=== PATIENT | male | born 1965 | race Caucasian/White ===

== ENCOUNTER 2016-12-22 13:32 | Emergency (ER) | payer BC ==
[~2016-12-22] VITALS: Ht 175.3 cm; Wt 77.1 kg
[2016-12-22 13:35] VITALS: BP 130/88
== END 2016-12-22 14:39 | disposition home or self-care (01) ==
LOC: ER 13:36
DX: S90.111A Contusion of right great toe without damage to nail, initial encounter (principal); W22.8XXA Striking against or struck by other objects, initial encounter; Y93.55 Activity, bike riding; Y92.89 Other specified places as the place of occurrence of the external cause; Y99.8 Other external cause status
CPT/HCPCS: 73660

== ENCOUNTER 2017-02-04 11:16 | Emergency (ER) | payer BC ==
[~2017-02-04] VITALS: Ht 175.3 cm; Wt 77.1 kg
[2017-02-04 11:20] VITALS: BP 123/81
== END 2017-02-04 14:21 | disposition home or self-care (01) ==
LOC: ER 11:16
DX: S96.911A Strain of unspecified muscle and tendon at ankle and foot level, right foot, initial encounter (principal); M72.2 Plantar fascial fibromatosis; X58.XXXA Exposure to other specified factors, initial encounter; Y93.89 Activity, other specified; Y99.8 Other external cause status; Y92.89 Other specified places as the place of occurrence of the external cause
CPT/HCPCS: 73700

== ENCOUNTER → 2018-01-11 | Outpatient (CLI) | payer BC ==
[2018-01-11 14:47] LABS: Basophils # (auto) 0 uL; Basophils % (auto) 0.6 % (0.0-2.0); Eosinophils # (auto) 0.1 uL; Eosinophils % (auto) 1.5 % (0.0-7.0); Hematocrit 44.4 % (41.0-53.0); Hemoglobin 14.9 g/dL (13.5-17.5); Lymphocytes # (auto) 2.4 uL; Lymphocytes % (auto) 31.5 % (10.0-50.0); Mean Corpuscular Hgb Conc. 33.6 g/dL (32.0-36.0); Mean Corpuscular Volume 92.4 fL (80.0-100.0); Monocytes # (auto) 0.4 uL; Monocytes % (auto) 5.3 % (0.0-12.0); Neutrophils # (auto) 4.7 uL; Neutrophils % (auto) 61.1 % (37.0-80.0); Platelet Count (auto) 370 10^3/uL (140-450); Red Blood Cells 4.81 10^6/uL (4.5-5.90); White Blood Cell 7.7 10^3/uL (4.4-10.8)
[2018-01-11 14:54] LABS: Albumin 4.2 g/dL (3.4-5.0); Potassium 4.4 mmol/L (3.5-5.1)
[2018-01-11 15:00] LABS: BUN/Creatinine Ratio 12.9; Calcium 8.3 mg/dL (8.5-10.1)
[2018-01-11 15:03] LABS: Bilirubin, Total 1.2 mg/dL (0.2-1.0); Total Protein 7.8 g/dL (6.4-8.2)
== END | disposition home or self-care (01) ==
LOC: LAB 13:43
DX: Z85.820 Personal history of malignant melanoma of skin (principal)
CPT/HCPCS: 36415; 80053; 82465; 84478; 85025

== ENCOUNTER 2018-10-03 11:33 | Emergency (ER) | payer BC ==
[~2018-10-03] VITALS: Ht 175.3 cm; Wt 74.8 kg
[2018-10-03] MEDS ORDERED: SODIUM CHLORIDE 0.9% 500 ML IVB ONE (11:38)
[2018-10-03] MEDS ORDERED: IOHEXOL 300 MG/ML 100ML BOTTLE IJ ONE (12:01)
[2018-10-03 12:07] LABS: Basophils # (auto) 0.1 uL; Basophils % (auto) 0.8 % (0.0-2.0); Eosinophils # (auto) 0.2 uL; Eosinophils % (auto) 2.1 % (0.0-7.0); Hematocrit 43.9 % (41.0-53.0); Hemoglobin 14.6 g/dL (13.5-17.5); Lymphocytes # (auto) 2.2 uL; Lymphocytes % (auto) 30.6 % (10.0-50.0); Mean Corpuscular Hemoglobin 30.5 pg (28.0-32.0); Mean Corpuscular Hgb Conc. 33.3 g/dL (32.0-36.0); Mean Corpuscular Volume 91.6 fL (80.0-100.0); Monocytes # (auto) 0.4 uL; Monocytes % (auto) 5.8 % (0.0-12.0); Neutrophils # (auto) 4.4 uL; Neutrophils % (auto) 60.7 % (37.0-80.0); Platelet Count (auto) 371 10^3/uL (140-450); Red Cell Distribution Width 13.4 % (11.8-14.3); White Blood Cell 7.3 10^3/uL (4.4-10.8)
[2018-10-03 12:18] LABS: Albumin 4.1 g/dL (3.4-5.0); BUN/Creatinine Ratio 14.3; Calcium 8.9 mg/dL (8.5-10.1); Magnesium 2.4 mg/dL (1.6-2.6); Potassium 4.1 mmol/L (3.5-5.1)
[2018-10-03 12:20] LABS: Bilirubin, Total 0.6 mg/dL (0.2-1.0); Total Protein 8.1 g/dL (6.4-8.2)
[2018-10-03 13:18] LABS: Urine Bacteria NONE SEEN /hpf (None Seen); Urine Blood Negative /uL (Negative); Urine Mucus FEW (None Seen); Urine Specific Gravity 1.023 (1.001-1.035); Urine WBC 1 /hpf (0 - 3)
[2018-10-03 13:53] VITALS: BP 114/76
== END 2018-10-03 13:54 | disposition home or self-care (01) ==
LOC: ER 11:33
DX: S39.011A Strain of muscle, fascia and tendon of abdomen, initial encounter (principal); N40.0 Benign prostatic hyperplasia without lower urinary tract symptoms; X58.XXXA Exposure to other specified factors, initial encounter; Y93.55 Activity, bike riding; Y92.89 Other specified places as the place of occurrence of the external cause; Y99.8 Other external cause status
CPT/HCPCS: 36415; 74177; 80053; 81001; 83690; 83735; 84154; 85025; 94761; 99284; J7040; Q9967

== ENCOUNTER → 2019-12-24 | Day surgery (SDC) | payer BC ==
[2019-12-18 14:32] LABS: Basophils # (auto) 0.1 10 ^3/uL (0-0.2); Basophils % (auto) 0.9 % (0.0-2.0); Eosinophils # (auto) 0.1 10 ^3/uL (0-0.8); Eosinophils % (auto) 1.5 % (0.0-7.0); Hematocrit 43.5 % (41.0-53.0); Hemoglobin 14.5 g/dL (13.5-17.5); Lymphocytes # (auto) 2.2 10 ^3/uL (0.4-5.4); Lymphocytes % (auto) 24.6 % (10.0-50.0); Mean Corpuscular Hemoglobin 30.5 pg (28.0-32.0); Mean Corpuscular Hgb Conc. 33.4 g/dL (32.0-36.0); Mean Corpuscular Volume 91.5 fL (80.0-100.0); Monocytes # (auto) 0.7 10 ^3/uL (0-1.3); Monocytes % (auto) 7.5 % (0.0-12.0); Neutrophils # (auto) 5.9 10 ^3/uL (1.6-8.6); Neutrophils % (auto) 65.5 % (37.0-80.0); Nucleated Red Blood Cells % 0.1 %; Platelet Count (auto) 379 10^3/uL (140-450); Red Blood Cells 4.76 10^6/uL (4.5-5.90); Red Cell Distribution Width 13.4 % (11.8-14.3); Urine Bacteria NONE SEEN /hpf (None Seen); Urine Blood Negative /uL (Negative); Urine Mucus FEW (None Seen); Urine Specific Gravity 1.028 (1.001-1.035); Urine WBC 1 /hpf (0 - 3); White Blood Cell 9.1 10^3/uL (4.4-10.8)
[2019-12-18 14:48] LABS: Potassium 4.2 mmol/L (3.5-5.1)
[2019-12-18 14:51] LABS: Albumin 4.2 g/dL (3.4-5.0); BUN/Creatinine Ratio 13.8; Calcium 9.2 mg/dL (8.5-10.1)
[2019-12-18 14:55] LABS: INR 1.12 (0.9-1.15); Partial Thromboplastin Time 29.6 sec (23.0-31.2)
[2019-12-18 14:57] LABS: Bilirubin, Total 0.8 mg/dL (0.2-1.0); Total Protein 7.8 g/dL (6.4-8.2)
[~2019-12-24] VITALS: Ht 175.3 cm; Wt 77.1 kg
[~2019-12-24] MED LIST: DexAMETHasone SOD PHOS 10MG/1ML VIAL INJ ONE; LIDOCAINE W/ EPINEPHRINE 1% 20ML VIAL ONE; MEPERIDINE HCL (25 MG/ML) 1ML VIAL ONE; MIDAZOLAM HCL 1MG/1ML-2 ML VIAL ONE; ONDANSETRON HCL 4 MG/2 ML VIAL ONE; PROPOFOL 10 MG/ML 20 ML IV ONE; ceFAZolin 1GM/50ML 50 ML IV ONE; fentaNYL CITRATE 100 MCG/2 ML VL ONE
[2019-12-24 09:25] VITALS: BP 125/83
== END | disposition home or self-care (01) ==
LOC: SUR 06:29
PROVIDERS: ATTEND Surgery
DX: R22.2 Localized swelling, mass and lump, trunk (principal); L72.3 Sebaceous cyst; D16.9 Benign neoplasm of bone and articular cartilage, unspecified; L91.8 Other hypertrophic disorders of the skin; Z20.828 Contact with and (suspected) exposure to other viral communicable diseases
CPT/HCPCS: 11401; 11402; 11403; 36415; 80053; 81001; 85025; 85610; 85730; 88305; J0690; J1100; J2175; J2250; J2405; J2704; J3010; U0003

== ENCOUNTER 2020-09-24 17:02 | Outpatient (CLI) | payer BC ==
[2020-09-25 08:51] LABS: Basophils # (auto) 0 10 ^3/uL (0-0.2); Basophils % (auto) 0.8 % (0.0-2.0); Eosinophils # (auto) 0.2 10 ^3/uL (0-0.8); Eosinophils % (auto) 4.5 % (0.0-7.0); Hematocrit 41.7 % (41.0-53.0); Hemoglobin 14.3 g/dL (13.5-17.5); Lymphocytes # (auto) 2.1 10 ^3/uL (0.4-5.4); Lymphocytes % (auto) 38.2 % (10.0-50.0); Mean Corpuscular Hgb Conc. 34.2 g/dL (32.0-36.0); Mean Corpuscular Volume 90.6 fL (80.0-100.0); Monocytes # (auto) 0.4 10 ^3/uL (0-1.3); Monocytes % (auto) 7.9 % (0.0-12.0); Neutrophils # (auto) 2.7 10 ^3/uL (1.6-8.6); Neutrophils % (auto) 48.6 % (37.0-80.0); Platelet Count (auto) 364 10^3/uL (140-450); Red Blood Cells 4.61 10^6/uL (4.5-5.90); Red Cell Distribution Width 13.2 % (11.8-14.3); White Blood Cell 5.5 10^3/uL (4.4-10.8)
[2020-09-25 08:56] LABS: Urine Bacteria NONE SEEN /hpf (None Seen); Urine Blood Negative /uL (Negative); Urine Mucus FEW (None Seen); Urine Specific Gravity 1.022 (1.001-1.035); Urine WBC <1 /hpf (0 - 3)
[2020-09-25 09:33] LABS: Potassium 4.7 mmol/L (3.5-5.1)
[2020-09-25 09:41] LABS: Albumin 3.6 g/dL (3.4-5.0); BUN/Creatinine Ratio 17.3; Bilirubin, Total 0.8 mg/dL (0.2-1.0); Calcium 8.5 mg/dL (8.5-10.1); Total Protein 7.3 g/dL (6.4-8.2)
== END 2020-09-25 08:05 | disposition home or self-care (01) ==
LOC: LAB 17:02
PROVIDERS: ATTEND Internal Medicine
DX: Z00.00 Encounter for general adult medical examination without abnormal findings (principal); I10 Essential (primary) hypertension
CPT/HCPCS: 36415; 80053; 80061; 81001; 82274; 82306; 83036; 84443; 85025; 85049

== ENCOUNTER → 2023-12-31 | Day surgery (SDC) | payer BC ==
[2023-12-26 08:58] LABS: Urine Bacteria None Seen /hpf (None Seen)
[2023-12-26 09:07] LABS: Basophils # (auto) 0.1 10 ^3/uL (0-0.2); Basophils % (auto) 0.8 % (0.0-2.0); Eosinophils # (auto) 0.1 10 ^3/uL (0-0.8); Eosinophils % (auto) 1.3 % (0.0-7.0); Hematocrit 45.5 % (41.0-53.0); Hemoglobin 15.6 g/dL (13.5-17.5); Lymphocytes # (auto) 2.3 10 ^3/uL (0.4-5.4); Mean Corpuscular Hemoglobin 31.4 pg (28.0-32.0); Mean Corpuscular Hgb Conc. 34.2 g/dL (32.0-36.0); Mean Corpuscular Volume 91.9 fL (80.0-100.0); Monocytes # (auto) 0.5 10 ^3/uL (0-1.3); Monocytes % (auto) 7.5 % (0.0-12.0); Neutrophils # (auto) 3.9 10 ^3/uL (1.6-8.6); Neutrophils % (auto) 56.4 % (37.0-80.0); Platelet Count (auto) 357 10^3/uL (140-450); Red Blood Cells 4.95 10^6/uL (4.5-5.90); Red Cell Distribution Width 13.2 % (11.8-14.3); White Blood Cell 6.8 10^3/uL (4.4-10.8)
[2023-12-26 09:22] LABS: INR 1.14 (0.9-1.15)
[2023-12-26 09:23] LABS: Alanine Aminotransferase 16 U/L (7-40); Albumin 4.9 g/dL (3.2-4.8); Alkaline Phosphatase 59 U/L (46-116); Anion Gap 8 (5-15); Aspartate Aminotransferase 13 U/L (13-40); BUN/Creatinine Ratio 14.3 (10.0-20.0); Bilirubin, Total 1.3 mg/dL (0.2-1.0); Blood Urea Nitrogen 16 mg/dL (9-23); Calcium 9.8 mg/dL (8.7-10.4); Carbon Dioxide 26 mmol/L (20-30); Chloride 106 mmol/L (98-107); Glucose 107 mg/dL (74-106); Potassium 4.3 mmol/L (3.5-5.1); Sodium 140 mmol/L (136-145); Total Protein 7.9 g/dL (5.7-8.2)
[2023-12-26 09:58] LABS: Urine Blood Negative /uL (Negative); Urine Clarity Clear (Clear); Urine Color Yellow (Yellow); Urine Mucus FEW (None Seen); Urine Protein, UAD TRACE (Negative); Urine Specific Gravity 1.031 (1.001-1.035); Urine Urobilinogen Normal (Negative); Urine WBC 1 /hpf (0 - 3); Urine pH 5.5 (5.0-9.0)
[~2023-12-31] VITALS: Ht 175.3 cm; Wt 81.6 kg
[~2023-12-31] MED LIST changes: +KETAMINE 50mg/ML 1ml syringe ONE; +LIDOCAINE 1% INJ PF 5ML AMP ONE; +LIDOCAINE HCL 100 MG/5ML (2%) SYRG INJ IV ONE; -LIDOCAINE W/ EPINEPHRINE 1% 20ML VIAL ONE; -MEPERIDINE HCL (25 MG/ML) 1ML VIAL ONE; +MEPERIDINE HCL (50 MG/ML) 1 ML VIAL ONE; -MIDAZOLAM HCL 1MG/1ML-2 ML VIAL ONE; +MIDAZOLAM HCL 2MG/2ML 2ml VIAL (1mg/ml) ONE; +MORPHINE SULFATE 4 MG/ML SYR/VIAL IV PRN; +SODIUM CHLORIDE LOCK 0 ML ONE; -ceFAZolin 1GM/50ML 50 ML IV ONE; +ceFAZolin 2 GM/D5W100ml 100 ML IV ONE
[2023-12-31 08:16] VITALS: RESP 13; TEMP 97.8; O2SAT 97
[2023-12-31 08:55] VITALS: BP 116/75; PULSE 53; RESP 14; O2SAT 95
== END | disposition home or self-care (01) ==
LOC: SUR 06:19 → EEVIPCON 07:00
PROVIDERS: ATTEND Urology
DX: N40.1 Benign prostatic hyperplasia with lower urinary tract symptoms (principal); R31.29 Other microscopic hematuria; R33.9 Retention of urine, unspecified; Z98.890 Other specified postprocedural states
CPT/HCPCS: 36415; 52000; 76872; 80053; 81001; 85025; 85610; 85730; 87086; C1769; J1100; J2250; J2405; J3010; J7030; J2704

== ENCOUNTER → 2024-01-22 | Outpatient (CLI) | payer BC ==
[2024-01-22 11:47] LABS: Basophils # (auto) 0.1 10 ^3/uL (0-0.2); Basophils % (auto) 0.7 % (0.0-2.0); Eosinophils # (auto) 0.2 10 ^3/uL (0-0.8); Eosinophils % (auto) 2.2 % (0.0-7.0); Hematocrit 43.6 % (41.0-53.0); Hemoglobin 14.9 g/dL (13.5-17.5); Lymphocytes # (auto) 2.7 10 ^3/uL (0.4-5.4); Lymphocytes % (auto) 35.3 % (10.0-50.0); Mean Corpuscular Hemoglobin 31.4 pg (28.0-32.0); Mean Corpuscular Hgb Conc. 34.1 g/dL (32.0-36.0); Mean Corpuscular Volume 91.8 fL (80.0-100.0); Monocytes # (auto) 0.5 10 ^3/uL (0-1.3); Monocytes % (auto) 6.8 % (0.0-12.0); Neutrophils # (auto) 4.2 10 ^3/uL (1.6-8.6); Platelet Count (auto) 352 10^3/uL (140-450); Red Blood Cells 4.75 10^6/uL (4.5-5.90); Red Cell Distribution Width 13.2 % (11.8-14.3); White Blood Cell 7.7 10^3/uL (4.4-10.8)
[2024-01-22 12:07] LABS: INR 1.08 (0.9-1.15); Prothrombin Time 11.4 sec (9.3-11.8)
[2024-01-22 12:21] LABS: Anion Gap 5 (5-15); Carbon Dioxide 30 mmol/L (20-31); Chloride 107 mmol/L (98-107); Potassium 4.3 mmol/L (3.5-5.1); Sodium 142 mmol/L (136-145)
[2024-01-22 12:27] LABS: BUN/Creatinine Ratio 10.8 (10.0-20.0); Blood Urea Nitrogen 11 mg/dL (9-23); Glucose 102 mg/dL (74-106)
== END | disposition home or self-care (01) ==
LOC: LAB 11:17
PROVIDERS: ATTEND Internal Medicine
DX: R22.9 Localized swelling, mass and lump, unspecified (principal); Z85.820 Personal history of malignant melanoma of skin
CPT/HCPCS: 36415; 80048; 85025; 85610

== ENCOUNTER 2024-02-06 08:09 | Day surgery (SDC) | payer BC ==
[2024-02-05 11:16] LABS: Urine Bacteria None Seen /hpf (None Seen)
[2024-02-05 12:01] LABS: Urine Blood Negative /uL (Negative); Urine Clarity Clear (Clear); Urine Color Light-Yellow (Yellow); Urine Mucus FEW (None Seen); Urine Protein, UAD Negative (Negative); Urine Specific Gravity 1.025 (1.001-1.035); Urine Urobilinogen Normal (Negative); Urine WBC 1 /hpf (0 - 3)
[2024-02-05 12:10] LABS: Alanine Aminotransferase 23 U/L (7-40); Albumin 4.5 g/dL (3.2-4.8); Alkaline Phosphatase 64 U/L (46-116); Anion Gap 6 (5-15); Aspartate Aminotransferase 18 U/L (13-40); BUN/Creatinine Ratio 10.5 (10.0-20.0); Bilirubin, Total 0.9 mg/dL (0.2-1.0); Blood Urea Nitrogen 10 mg/dL (9-23); Calcium 9.7 mg/dL (8.7-10.4); Carbon Dioxide 29 mmol/L (20-31); Chloride 105 mmol/L (98-107); Glucose 98 mg/dL (74-106); Potassium 4.1 mmol/L (3.5-5.1); Sodium 140 mmol/L (136-145); Total Protein 7.6 g/dL (5.7-8.2)
[2024-02-05 12:12] LABS: INR 1.12 (0.9-1.15); Partial Thromboplastin Time 30.4 SEC (24.5-34.5); Prothrombin Time 11.8 sec (9.3-11.8)
[2024-02-05 12:35] LABS: Basophils # (auto) 0 10 ^3/uL (0-0.2); Basophils % (auto) 0.6 % (0.0-2.0); Eosinophils # (auto) 0.1 10 ^3/uL (0-0.8); Eosinophils % (auto) 0.8 % (0.0-7.0); Hemoglobin 14.8 g/dL (13.5-17.5); Lymphocytes # (auto) 2.2 10 ^3/uL (0.4-5.4); Lymphocytes % (auto) 27.7 % (10.0-50.0); Mean Corpuscular Hemoglobin 31.7 pg (28.0-32.0); Mean Corpuscular Hgb Conc. 34.5 g/dL (32.0-36.0); Mean Corpuscular Volume 91.9 fL (80.0-100.0); Monocytes # (auto) 0.6 10 ^3/uL (0-1.3); Neutrophils # (auto) 5.2 10 ^3/uL (1.6-8.6); Neutrophils % (auto) 63.9 % (37.0-80.0); Platelet Count (auto) 371 10^3/uL (140-450); Red Blood Cells 4.68 10^6/uL (4.5-5.90); Red Cell Distribution Width 13.4 % (11.8-14.3); White Blood Cell 8.1 10^3/uL (4.4-10.8)
[~2024-02-06] VITALS: Ht 175.3 cm; Wt 81.6 kg
[2024-02-06] MEDS ORDERED: ROCURONIUM 10MG/ML 10ML VIAL IV ONE (10:13)
[2024-02-06] MEDS ORDERED: ceFAZolin 2 GM/D5W100ml 100 ML IV ONE (10:14)
[2024-02-06] MEDS ORDERED: LIDOCAINE 1% INJ PF 5ML AMP ONE (10:15)
[2024-02-06] MEDS ORDERED: MIDAZOLAM HCL 2MG/2ML 2ml VIAL (1mg/ml) ONE (10:42)
[2024-02-06] MEDS: BUPIVACAINE HCL 0.25% P/F 10 ML VIAL ONE (10:50)
[2024-02-06] MEDS: LIDOCAINE W/ EPINEPHRINE 1% 20ML VIAL ONE (10:51)
[2024-02-06 11:01] VITALS: TEMP 98.1; O2SAT 98
[2024-02-06] MEDS ORDERED: fentaNYL CITRATE 100 MCG/2 ML VL ONE (11:44)
[2024-02-06] MEDS ORDERED: ONDANSETRON HCL 4 MG/2 ML VIAL ONE (11:45)
[2024-02-06 11:57] VITALS: BP 118/60; PULSE 62; RESP 12; O2SAT 96
--- NOTE | 2024-02-06 13:23 | DVHOP ---
DATE OF SURGERY: 02/06/2024 PREOPERATIVE DIAGNOSIS: Flank lipoma left side. POSTOPERATIVE DIAGNOSIS: Lipoma, left flank. SURGEON: Abel Miller MD TIMBER MANAGEMENT PROFESSOR: Demarcus Duran. ANESTHESIA: General. ANESTHESIOLOGIST: Dr. Lopez. PROCEDURE: Excision of lipoma, left flank. DESCRIPTION OF PROCEDURE: Under adequate anesthesia following the patient's localization of the lesion in the left flank and marking the area in the preoperative area. The patient was transported to the operating room and anesthetized, placed on the table with the left side flank facing upward down, the down axilla protected on axillary roll,body secured and padded. Following preparation of the skin, incision was made over the visible palpable mass. The mass was removed. It was an intramuscular lipoma. The lesion was removed. The wound was irrigated. Hemostasis meticulously accomplished. Closure accomplished using Monocryl sutures, Dermabond glue and Steri-Strips. The patient remained stable throughout the procedure, left the operating room following an accurate needle and sponge count. His was thoroughly informed in the waiting room. Abel Miller MD PF TID: [id number] RECEIPT: [id number]
== END 2024-02-06 12:06 | disposition home or self-care (01) ==
LOC: SUR 08:09
PROVIDERS: ATTEND Surgery
DX: D17.1 Benign lipomatous neoplasm of skin and subcutaneous tissue of trunk (principal); N40.1 Benign prostatic hyperplasia with lower urinary tract symptoms; N13.8 Other obstructive and reflux uropathy
CPT/HCPCS: 21556; 36415; 80053; 81001; 85025; 85610; 85730; 86850; 86900; 86901; 88305; J1171; J2250; J2310; J2405; J3010; J3490; A4565

== ENCOUNTER 2024-10-19 11:04 | Emergency (ER) | payer BC ==
[~2024-10-19] VITALS: Ht 175.3 cm; Wt 79.5 kg
[2024-10-19 11:05] VITALS: TEMP 98.2
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
[2024-10-19] MEDS: IOHEXOL 300 MG/ML 100ML BOTTLE IJ ONE (11:28)
[2024-10-19] MEDS: SODIUM CHLORIDE 0.9% 500 ML IVB ONE (11:35)
[2024-10-19] MEDS: ONDANSETRON HCL 4 MG/2 ML VIAL IV ONE (11:37)
[2024-10-19 11:55] VITALS: PULSE 54; RESP 16; O2SAT 99
[2024-10-19 12:16] VITALS: BP 132/80; RESP 16; O2SAT 95
--- NOTE | 2024-10-19 12:20 | DVH ---
Exam: CT CT CHEST/AB/PL W CON- IV ONLY History: TRAUMA ; right flank pain, fall 10 days ago Comparison Study: None Technique: Multidetector spiral CT of the abdomen was performed from lung apices to pubic symphysis. Imaging was performed with IV contrast. Axial, coronal and sagittal multiplanar reformats were obta ined from the axial data set by the technologist. Radiation Dose: CTDIvol 10.5 mGy, DLP 745 mGy*cm. Contrast: 100 mL omni 300 Findings: Thyroid: Normal Lungs: No focal consolidation. Heart and vascular: Heart is normal in size. No pericardial effusion. No thoracic aortic aneurysm or dissection. Mediastinum: No lymphadenopathy. Liver: Along the anterior margin of the liver there is a 1.8 x 1.4 x 3.2 cm lesion which is hypodense and has peripheral discontinuous nodular enhancement. Gallbladder and Biliary Tree: Unremarkable Spleen: Unremarkable Pancreas: The pancreas is grossly normal in appearance. Adrenal Glands: Unremarkable Kidneys: Kidneys are grossly normal without calculi or hydronephrosis. Bladder: No bladder wall thickening. There is focal soft tissue density along the posterior/inferior aspect of the urinary bladder which likely represents the prostate bulging into the bladder contour. Bowel: The stomach is poorly distended. Small bowel and colon are normal in caliber and distribution. Minimal colonic diverticulosis without evidence of diverticulitis. The appendix is not visualized; h owever, no secondary findings of acute appendicitis identified. Ascites: Absent Lymphadenopathy: No mesenteric, retroperitoneal or periportal lymphadenopathy. Abdominal Wall and Mesentery: Small fat containing left inguinal hernia. Vasculature: The visualized abdominal aorta is normal in size and caliber. Pelvic Organs: Unremarkable Musculoskeletal: Old fracture of the left 4th anterolateral rib. Sclerotic endplate changes at L5-S1 and in the visualized lower cervical spine are commonly secondary to degenerative change. Mild-to-mod erate degenerative disc changes in the thoracic and lumbar spine which are most significant at L5-S1. Vertebral body heights are maintained. No evidence of acute fracture. IMPRESSION: No evidence of acute traumatic injury in the chest, abdomen, or pelvis. Liver lesion measuring up to 3.2 cm appears most consistent with a hemangioma. If patient has risk fa ctors for hepatic malignancy then consider multiphasic CT or MRI for confirmation that this is a jennifer ngioma. Otherwise may consider a follow-up ultrasound in 6 months to confirm stability. Radiation optimization: All CT scans at this facility use at least one of these dose optimization nisa hniques: automated exposure control mA and/or kV adjustment per patient size (includes targeted exam s where dose is matched to clinical indication) or iterative reconstruction.
[2024-10-19] MEDS ORDERED: HYDR-4902 PO (12:25)
[2024-10-19 12:28] VITALS: PULSE 48
[2024-10-19 12:29] LABS: Hematocrit 39.1 % (41.0-53.0); Hemoglobin 13.2 g/dL (13.5-17.5); Mean Corpuscular Hemoglobin 30.9 pg (28.0-32.0); Mean Corpuscular Volume 91.8 fL (80.0-100.0); Nucleated Red Blood Cells % 0.1 %
[2024-10-19 12:40] LABS: Alanine Aminotransferase 13 U/L (7-40); Albumin 3.9 g/dL (3.2-4.8); Alkaline Phosphatase 61 U/L (46-116); Anion Gap 5 (5-15); BUN/Creatinine Ratio 11.1 (10.0-20.0); Blood Urea Nitrogen 11 mg/dL (9-23); Calcium 9.3 mg/dL (8.7-10.4); Carbon Dioxide 26 mmol/L (20-31); Chloride 105 mmol/L (98-107); Glucose 95 mg/dL (74-106); Potassium 3.8 mmol/L (3.5-5.1); Sodium 136 mmol/L (136-145); Total Protein 6.4 g/dL (5.7-8.2)
[2024-10-19 12:41] LABS: Bilirubin, Total 0.7 mg/dL (0.2-1.0)
== END 2024-10-19 12:48 | disposition home or self-care (01) ==
LOC: ER 11:04
DX: D18.03 Hemangioma of intra-abdominal structures (principal); M79.18 Myalgia, other site
CPT/HCPCS: 36415; 71260; 74177; 80053; 82550; 85025; 96361; 96374; 99285; J2405; J7040; Q9967